=== PATIENT | female | born 1940 | race Caucasian/White ===

== ENCOUNTER 2017-08-12 16:28 | Inpatient (IN) | payer MEDICARE, OTHER ==
[2017-08-12] MEDS: PANTOPRAZOLE 40 MG INJ IV (16:32)
[2017-08-12] MEDS: CEFEPIME 2GM/50 ML (PMX) 50 ML IVPB (16:38)
[2017-08-12] MEDS: SOD CHLORIDE 0.9% 1,000 ML IV (16:46)
[2017-08-12 16:57] LABS: ADD MAN DIFF? NO
[2017-08-12 17:00] LABS: WHITE BLOOD COUNT 8.9 10^3/ul (4.8-10.8)
[2017-08-12 17:00] LABS: BASOPHIL # 0.1 10^3/ul (0.0-0.1); BASOPHILS % 0.6 % (0.0-2.0); EOSINOPHILS # 0.1 10^3/ul (0.0-0.5); HEMATOCRIT 40.7 % (37.0-47.0); HEMOGLOBIN 13.4 g/dl (12.0-16.0); LYMPHOCYTES # 1.8 10^3/ul (0.8-2.9); LYMPHOCYTES % 20.1 % (15.0-51.0); MEAN CORPUSCULAR HEMOGLOBIN 31.2 pg (29.0-33.0); MEAN CORPUSCULAR HGB CONC 32.9 g/dl (32.0-37.0); MEAN CORPUSCULAR VOLUME 94.7 fl (82.0-101.0); MEAN PLATELET VOLUME 10.1 fl (7.4-10.4); MONOCYTE # 1.4 10^3/ul (0.3-0.9); MONOCYTES % 15.6 % (0.0-11.0); NEUTROPHIL # 5.5 10^3/ul (1.6-7.5); NEUTROPHILS % 61.6 % (39.0-77.0); PLATELET COUNT 181 10^3/UL (140-415); RED CELL DISTRIBUTION WIDTH 15.2 % (11.5-14.5)
[2017-08-12 17:19] LABS: LACTIC ACID 1.9 mmol/L (0.5-2.0)
[2017-08-12 17:19] LABS: ALANINE AMINOTRANSFERASE 35 IU/L (13-69); ALBUMIN 2.7 g/dl (3.3-4.9); ALKALINE PHOSPHATASE 88 IU/L (42-121); ANION GAP 8 (8-16); ASPARTATE AMINO TRANSFERASE 31 IU/L (15-46); BILIRUBIN,INDIRECT 0.9 mg/dl (0-1.1); BILIRUBIN,TOTAL 0.9 mg/dl (0.2-1.3); BLOOD UREA NITROGEN 16 mg/dl (7-20); CALCIUM 8.4 mg/dl (8.4-10.2); CARBON DIOXIDE 25 mmol/L (21-31); CHLORIDE 106 mmol/L (97-110); CREATININE 0.56 mg/dl (0.44-1.00); GLUCOSE 141 mg/dl (70-220); POTASSIUM 3.6 mmol/L (3.5-5.1); SODIUM 135 mmol/L (135-144); TOTAL PROTEIN 5.7 g/dl (6.1-8.1)
[2017-08-12 17:20] LABS: INR 1.26; PT RATIO 1.3
[2017-08-12 17:30] LABS: TROPONIN-I < 0.010 ng/ml (0.000-0.120)
[2017-08-12] MEDS: ACETAMINOPHEN 325 MG TAB PO (18:09)
[2017-08-12 18:16] LABS: ADD UMIC YES; UR ASCORBIC ACID NEGATIVE (NEGATIVE); UR BILIRUBIN (Dip) NEGATIVE (NEGATIVE); UR BLOOD (Dip) NEGATIVE (NEGATIVE); UR BUDDING YEAST MODERATE /HPF (NONE SEEN); UR CLARITY CLEAR (CLEAR); UR COLOR YELLOW (YELLOW); UR GLUCOSE (Dip) 3+ mg/dL (NEGATIVE); UR KETONES (Dip) NEGATIVE (NEGATIVE); UR LEUKOCYTE ESTERASE (Dip) TRACE Leu/ul (NEGATIVE); UR NITRITE (Dip) NEGATIVE (NEGATIVE); UR RBC 1 /HPF (0-5); UR SPECIFIC GRAVITY (Dip) 1.015 (1.003-1.030); UR SQUAMOUS EPITHELIAL CELL FEW /HPF (FEW); UR TOTAL PROTEIN (Dip) NEGATIVE (NEGATIVE); UR UROBILINOGEN (Dip) 2+ mg/dL (NEGATIVE); UR WBC 10 /HPF (0-5)
[2017-08-12] MEDS: VANCOMYCIN 1 GM (PMX) 250 ML IVPB (18:51)
[2017-08-12] MEDS ORDERED: HYDROCODONE/APAP (5/325) TAB PO (19:00)
[2017-08-12] MEDS ORDERED: GLUCAGON 1 MG INJ IM (19:00)
[2017-08-12] MEDS ORDERED: ACETAMINOPHEN 325 MG TAB PO (19:00)
[2017-08-12] MEDS ORDERED: DEXTROSE 50% 50 ML SYRINGE IV ×2 (19:00)
[2017-08-12] MEDS ORDERED: GLUCOSE GEL 15 GRAM TUBE PO (19:00)
[2017-08-12] MEDS ORDERED: GLUCOSE GEL 15 GRAM TUBE BUCCAL (19:00)
[2017-08-12] MEDS ORDERED: ONDANSETRON 4 MG INJ IV ×2 (19:00)
[2017-08-12 19:30] LABS: LACTIC ACID 1.3 mmol/L (0.5-2.0)
[2017-08-12] MEDS: INSULIN GLARGINE [LANtus] 3 ML PEN SC (20:00)
[2017-08-12] MEDS: INSULIN ASPART [NOVOLOG] 3 ML PEN SC (21:00)
[2017-08-12 21:36] LABS: LACTIC ACID 1.1 mmol/L (0.5-2.0)
[2017-08-13] MEDS: ALBUTEROL/IPRATROPIUM (NEB) 3 ML AMP HHN (02:15)
[2017-08-13] MEDS: ACCU-CHEK XX (02:38)
[2017-08-13] MEDS: PANTOPRAZOLE (EC) 40 MG TAB PO (06:51)
[2017-08-13] MEDS: INSULIN ASPART [NOVOLOG] 3 ML PEN SC ×8 (08:15→21:26)
[2017-08-13] MEDS ORDERED: HYDROCORTISONE 25 MG SUPP PR (13:00)
[2017-08-13] MEDS ORDERED: BISACODYL 10 MG SUPP PR (13:00)
[2017-08-13] MEDS: FUROSEMIDE 40 MG INJ IV ×2 (13:47→21:16)
[2017-08-13] MEDS: CEFTRIAXONE 1 GM/50 ML (PMX) 50 ML IVPB (13:47)
[2017-08-13] MEDS: SENNA/DOCUSATE NA (8.6MG/50MG) TAB PO (13:48)
[2017-08-13] MEDS: BISACODYL (EC) 5 MG TAB PO (13:48)
[2017-08-13] MEDS: ALLOPURINOL 100 MG TAB PO ×2 (13:49→21:16)
[2017-08-13] MEDS: TICAGRELOR 90 MG TABLET PO (20:22)
[2017-08-13] MEDS: MAGNESIUM HYDROXIDE 30ML CUP PO (21:00)
[2017-08-13] MEDS: ATORVASTATIN 20 MG TAB PO (21:16)
[2017-08-13] MEDS: INSULIN GLARGINE [LANtus] 3 ML PEN SC (22:40)
[2017-08-13] MEDS ORDERED: LEVALBUTEROL (NEB) 0.63 MG/3 ML AMP (22:48)
[2017-08-13] MEDS: LEVALBUTEROL (NEB) 0.31 MG/3 ML AMP HHN (23:06)
[2017-08-13 23:15] LABS: OCCULT BLOOD STOOL POSITIVE (NEGATIVE)
[2017-08-14] MEDS: ACCU-CHEK XX (02:00)
[2017-08-14] MEDS: SOD CHLORIDE 0.9% 1,000 ML IV ×2 (02:51→20:48)
[2017-08-14 04:13] LABS: HEMOGLOBIN A1C 7.6 % (0-5.9)
[2017-08-14 04:16] LABS: ABNORMAL IP MESSAGE 1; HEMATOCRIT 36.9 % (37.0-47.0); HEMOGLOBIN 12.5 g/dl (12.0-16.0); MEAN CORPUSCULAR HGB CONC 33.9 g/dl (32.0-37.0); MEAN CORPUSCULAR VOLUME 94.4 fl (82.0-101.0); MEAN PLATELET VOLUME 10.6 fl (7.4-10.4); PLATELET COUNT 160 10^3/UL (140-415); RED BLOOD COUNT 3.91 10^6/ul (4.20-5.40); RED CELL DISTRIBUTION WIDTH 15.3 % (11.5-14.5)
[2017-08-14 04:16] LABS: WHITE BLOOD COUNT 10.1 10^3/ul (4.8-10.8)
[2017-08-14 04:21] LABS: POSITIVE DIFF @See below
[2017-08-14 04:22] LABS: ADD MAN DIFF? YES
[2017-08-14 04:23] LABS: PARTIAL THROMBOPLASTIN TIME 30.9 Sec (25.0-35.0)
[2017-08-14 04:24] LABS: LACTIC ACID 1.9 mmol/L (0.5-2.0)
[2017-08-14 04:29] LABS: ALANINE AMINOTRANSFERASE 32 IU/L (13-69); ALBUMIN 2.5 g/dl (3.3-4.9); ALBUMIN/GLOBULIN RATIO 0.92; ALKALINE PHOSPHATASE 87 IU/L (42-121); ANION GAP 10 (8-16); ASPARTATE AMINO TRANSFERASE 28 IU/L (15-46); BILIRUBIN,INDIRECT 0.7 mg/dl (0-1.1); BILIRUBIN,TOTAL 0.7 mg/dl (0.2-1.3); BLOOD UREA NITROGEN 16 mg/dl (7-20); CALCIUM 7.9 mg/dl (8.4-10.2); CARBON DIOXIDE 25 mmol/L (21-31); CHLORIDE 105 mmol/L (97-110); CREATININE 0.68 mg/dl (0.44-1.00); GLUCOSE 260 mg/dl (70-220); MAGNESIUM 1.6 mg/dl (1.7-2.5); PHOSPHORUS 1.9 mg/dl (2.5-4.9); POTASSIUM 3.3 mmol/L (3.5-5.1); SODIUM 137 mmol/L (135-144); TOTAL PROTEIN 5.2 g/dl (6.1-8.1)
[2017-08-14 04:38] LABS: TROPONIN-I 0.013 ng/ml (0.000-0.120)
[2017-08-14 04:57] LABS: THYROID STIMULATING HORMONE 0.065 MIU/L (0.465-4.680)
[2017-08-14 05:03] LABS: PT RATIO 1.4
[2017-08-14 05:31] LABS: ANISOCYTOSIS 1+ (0-0); BAND NEUTROPHILS #M 2.1 10^3/ul (0.0-0.6); BAND NEUTROPHILS % (M) 21 % (0-4); BASOPHIL #M 0.1 10^3/ul (0.0-0.0); BASOPHILS % (M) 1 % (0-2); GIANT THROMBO% (M) 2 % (0-0); LYMPHOCYTES #M 1.4 10^3/ul (0.8-2.9); LYMPHOCYTES % (M) 14 % (15-51); METAMYELOCYTES #M 0.6 10^3/ul (0.0-0.0); METAMYELOCYTES %M 6 % (0-0); MONOCYTE #M 1.3 10^3/ul (0.3-0.9); MONOCYTES % (M) 13 % (0-11); MYELOCYTES #M 0.1 10^3/ul (0.0-0.0); MYELOCYTES % (M) 1 % (0-0); OVALOCYTES 1+ (0-0); PLATELET ESTIMATE NORMAL; POIKILOCYTOSIS 1+ (0-0); POLYCHROMASIA 1+ (0-0); REACTIVE LYMPHOCYTES #M 0.1 10^3/ul (0.0-0.0); REACTIVE LYMPHOCYTES% (M) 1 % (0-0); SEG NEUT #M 4.5 10^3/ul (1.6-7.5); SEGMENTED NEUTROPHILS (M) % 42 % (39-77); SMUDGE%M 3 % (0-0)
[2017-08-14] MEDS: PANTOPRAZOLE (EC) 40 MG TAB PO (06:05)
[2017-08-14 06:23] LABS: INR 1.42; PROTIME 17.7 Sec (11.9-14.9)
[2017-08-14] MEDS: INSULIN ASPART [NOVOLOG] 3 ML PEN SC ×7 (08:04→20:55)
[2017-08-14] MEDS: ENOXAPARIN 40 MG/0.4 ML SYG SC (09:00)
[2017-08-14] MEDS: SENNA/DOCUSATE NA (8.6MG/50MG) TAB PO (09:10)
[2017-08-14] MEDS: METHIMAZOLE 5 MG TAB PO (09:10)
[2017-08-14] MEDS: ALLOPURINOL 100 MG TAB PO ×2 (09:10→20:49)
[2017-08-14] MEDS: BISACODYL (EC) 5 MG TAB PO (09:11)
[2017-08-14] MEDS: FUROSEMIDE 40 MG INJ IV ×3 (09:14→20:57)
[2017-08-14] MEDS: POTASSIUM PHOSPHATE 40 MEQ in SOD CHLORIDE 0.9% 250 ML IVPB (10:27)
[2017-08-14 13:57] LABS: FREE T4 (FREE THYROXINE) 2.19 ng/dl (0.85-1.93)
[2017-08-14 13:58] LABS: FREE T3 5.66 pg/ml (2.77-5.27)
[2017-08-14] MEDS: CEFTRIAXONE 1 GM/50 ML (PMX) 50 ML IVPB (15:11)
[2017-08-14] MEDS: MAGNESIUM SULFATE 2 GM/50 ML 50 ML IVPB (16:15)
[2017-08-14] MEDS: POTASSIUM CHLORIDE (SR) 20 MEQ TAB PO (16:15)
[2017-08-14] MEDS: MAGNESIUM SULFATE 3 GM in DEXTROSE 5% 100 ML IVPB (16:22)
[2017-08-14] MEDS: ATORVASTATIN 20 MG TAB PO (20:49)
[2017-08-14] MEDS: MAGNESIUM HYDROXIDE 30ML CUP PO (20:49)
[2017-08-14] MEDS: INSULIN GLARGINE [LANTus] (100 UNITS/ML) SYG SC (21:03)
[2017-08-15] MEDS: ACCU-CHEK XX (01:47)
[2017-08-15] MEDS: PANTOPRAZOLE (EC) 40 MG TAB PO (05:53)
[2017-08-15 06:21] LABS: ADD MAN DIFF? NO
[2017-08-15 06:33] LABS: WHITE BLOOD COUNT 6.4 10^3/ul (4.8-10.8)
[2017-08-15 06:34] LABS: BASOPHIL # 0.1 10^3/ul (0.0-0.1); BASOPHILS % 1.4 % (0.0-2.0); EOSINOPHILS # 0.1 10^3/ul (0.0-0.5); EOSINOPHILS % 1.4 % (0.0-7.0); HEMATOCRIT 35.5 % (37.0-47.0); HEMOGLOBIN 11.8 g/dl (12.0-16.0); LYMPHOCYTES # 1.4 10^3/ul (0.8-2.9); LYMPHOCYTES % 21.7 % (15.0-51.0); MEAN CORPUSCULAR HEMOGLOBIN 31.4 pg (29.0-33.0); MEAN CORPUSCULAR HGB CONC 33.2 g/dl (32.0-37.0); MEAN CORPUSCULAR VOLUME 94.4 fl (82.0-101.0); MEAN PLATELET VOLUME 10.3 fl (7.4-10.4); MONOCYTE # 0.9 10^3/ul (0.3-0.9); MONOCYTES % 13.2 % (0.0-11.0); NEUTROPHILS % 61.5 % (39.0-77.0); PLATELET COUNT 148 10^3/UL (140-415); RED BLOOD COUNT 3.76 10^6/ul (4.20-5.40); RED CELL DISTRIBUTION WIDTH 15.1 % (11.5-14.5)
[2017-08-15 06:50] LABS: POSITIVE DIFF @See below
[2017-08-15 07:00] LABS: ANION GAP 7 (8-16); BLOOD UREA NITROGEN 15 mg/dl (7-20); CALCIUM 7.5 mg/dl (8.4-10.2); CARBON DIOXIDE 27 mmol/L (21-31); CHLORIDE 106 mmol/L (97-110); CREATININE 0.54 mg/dl (0.44-1.00); GLUCOSE 190 mg/dl (70-220); POTASSIUM 3.1 mmol/L (3.5-5.1); SODIUM 137 mmol/L (135-144)
[2017-08-15] MEDS: INSULIN ASPART [NOVOLOG] 3 ML PEN SC ×7 (08:20→21:00)
[2017-08-15] MEDS ORDERED: POTASSIUM CHLORIDE 100 ML IVPB (08:30)
[2017-08-15] MEDS: BISACODYL (EC) 5 MG TAB PO ×2 (09:33→15:13)
[2017-08-15] MEDS: SENNA/DOCUSATE NA (8.6MG/50MG) TAB PO (09:34)
[2017-08-15] MEDS: ALLOPURINOL 100 MG TAB PO ×2 (09:34→21:08)
[2017-08-15] MEDS: METHIMAZOLE 5 MG TAB PO (09:34)
[2017-08-15] MEDS: ENOXAPARIN 40 MG/0.4 ML SYG SC ×2 (09:53)
[2017-08-15] MEDS: POTASSIUM CHLORIDE 20 MEQ POWDER FOR ORAL SOLN PO (11:48)
[2017-08-15] MEDS: CEFTRIAXONE 1 GM/50 ML (PMX) 50 ML IVPB (12:25)
[2017-08-15] MEDS ORDERED: FUROSEMIDE 40 MG INJ IV (15:00)
[2017-08-15] MEDS: FUROSEMIDE 40 MG INJ IV (15:13)
[2017-08-15] MEDS: ALBUTEROL/IPRATROPIUM (NEB) 3 ML AMP HHN (16:11)
[2017-08-15] MEDS: MAGNESIUM CITRATE 300 ML BTL PO (17:53)
[2017-08-15] MEDS: POLYETHYLENE GLYCOL 3350 119 GM POWDER PO (17:58)
[2017-08-15] MEDS: MAGNESIUM HYDROXIDE 30ML CUP PO (21:08)
[2017-08-15] MEDS: LACTOBACILLUS RHAMNOSUS CAP PO (21:08)
[2017-08-15] MEDS: ATORVASTATIN 20 MG TAB PO (21:08)
[2017-08-15] MEDS: INSULIN GLARGINE [LANTus] (100 UNITS/ML) SYG SC (21:19)
[2017-08-16] MEDS: SOD CHLORIDE 0.9% 500 ML IV ×2 (01:17→03:31)
[2017-08-16] MEDS: ACETAMINOPHEN 325 MG TAB PO ×2 (01:17→03:30)
[2017-08-16] MEDS: ACCU-CHEK XX (01:35)
[2017-08-16] MEDS: INSULIN GLARGINE [LANTus] (100 UNITS/ML) SYG SC ×2 (01:40→21:38)
[2017-08-16 02:32] LABS: LACTIC ACID 4.7 mmol/L (0.5-2.0)
[2017-08-16] MEDS ORDERED: SOD CHLORIDE 0.9% 1,000 ML IV (03:00)
[2017-08-16] MEDS ORDERED: VANCOMYCIN IV PER PHARMACY XX (03:00)
[2017-08-16] MEDS: PIPER-TAZO 2.25 GM (PMX) 50 ML IVPB ×3 (03:30→12:07)
[2017-08-16 04:07] LABS: ADD MAN DIFF? NO
[2017-08-16 04:15] LABS: ABNORMAL IP MESSAGE 1; BASOPHIL # 0.1 10^3/ul (0.0-0.1); BASOPHILS % 1.1 % (0.0-2.0); HEMATOCRIT 35.7 % (37.0-47.0); HEMOGLOBIN 11.8 g/dl (12.0-16.0); LYMPHOCYTES # 0.4 10^3/ul (0.8-2.9); MEAN CORPUSCULAR HEMOGLOBIN 31.1 pg (29.0-33.0); MEAN CORPUSCULAR HGB CONC 33.1 g/dl (32.0-37.0); MEAN CORPUSCULAR VOLUME 93.9 fl (82.0-101.0); MEAN PLATELET VOLUME 10.8 fl (7.4-10.4); MONOCYTE # 0.4 10^3/ul (0.3-0.9); NEUTROPHILS % 86.5 % (39.0-77.0); PLATELET COUNT 163 10^3/UL (140-415); RED CELL DISTRIBUTION WIDTH 15.1 % (11.5-14.5)
[2017-08-16 04:19] LABS: POSITIVE DIFF @See below
[2017-08-16] MEDS: VANCOMYCIN 1.5 GM in SOD CHLORIDE 0.9% 250 ML IVPB (04:27)
[2017-08-16] MEDS: PANTOPRAZOLE (EC) 40 MG TAB PO (06:31)
[2017-08-16] MEDS: POLYETHYLENE GLYCOL 3350 119 GM POWDER PO (06:32)
[2017-08-16 07:01] LABS: ABNORMAL IP MESSAGE 1; HEMATOCRIT 33.7 % (37.0-47.0); HEMOGLOBIN 11.4 g/dl (12.0-16.0); MEAN CORPUSCULAR HEMOGLOBIN 31.9 pg (29.0-33.0); MEAN CORPUSCULAR HGB CONC 33.8 g/dl (32.0-37.0); MEAN CORPUSCULAR VOLUME 94.4 fl (82.0-101.0); MEAN PLATELET VOLUME 10.7 fl (7.4-10.4); PLATELET COUNT 174 10^3/UL (140-415); RED BLOOD COUNT 3.57 10^6/ul (4.20-5.40); RED CELL DISTRIBUTION WIDTH 15.1 % (11.5-14.5)
[2017-08-16 07:01] LABS: WHITE BLOOD COUNT 9.7 10^3/ul (4.8-10.8)
[2017-08-16 07:04] LABS: ADD MAN DIFF? YES; POSITIVE DIFF @See below
[2017-08-16 07:24] LABS: CALCIUM 7.7 mg/dl (8.4-10.2); CARBON DIOXIDE 30 mmol/L (21-31); CREATININE 0.71 mg/dl (0.44-1.00); GLUCOSE 144 mg/dl (70-220); POTASSIUM 3.8 mmol/L (3.5-5.1)
[2017-08-16 07:51] LABS: LACTIC ACID 2.4 mmol/L (0.5-2.0)
[2017-08-16] MEDS: BISACODYL (EC) 5 MG TAB PO ×2 (07:54)
[2017-08-16] MEDS: LACTOBACILLUS RHAMNOSUS CAP PO ×2 (07:55→21:29)
[2017-08-16] MEDS: METHIMAZOLE 5 MG TAB PO (07:55)
[2017-08-16] MEDS: SENNA/DOCUSATE NA (8.6MG/50MG) TAB PO (07:55)
[2017-08-16] MEDS: ALLOPURINOL 100 MG TAB PO ×2 (07:55→21:29)
[2017-08-16] MEDS: INSULIN ASPART [NOVOLOG] 3 ML PEN SC ×7 (07:55→21:00)
[2017-08-16 07:57] LABS: SODIUM 141 mmol/L (135-144)
[2017-08-16 08:14] LABS: ANION GAP 7 (8-16); BLOOD UREA NITROGEN 22 mg/dl (7-20); CHLORIDE 108 mmol/L (97-110)
[2017-08-16 09:28] LABS: BAND NEUTROPHILS #M 4.2 10^3/ul (0.0-0.6); BAND NEUTROPHILS % (M) 44 % (0-4); EOSINOPHILS % (M) 2 % (0-7); GIANT THROMBO% (M) 1 % (0-0); LYMPHOCYTES #M 0.5 10^3/ul (0.8-2.9); LYMPHOCYTES % (M) 6 % (15-51); MONOCYTE #M 0.4 10^3/ul (0.3-0.9); MONOCYTES % (M) 5 % (0-11); OVALOCYTES 1+ (0-0); PLATELET ESTIMATE NORMAL; POIKILOCYTOSIS 1+ (0-0); REACTIVE LYMPHOCYTES #M 0.1 10^3/ul (0.0-0.0); REACTIVE LYMPHOCYTES% (M) 2 % (0-0); SEG NEUT #M 4.4 10^3/ul (1.6-7.5); SEGMENTED NEUTROPHILS (M) % 41 % (39-77); SMUDGE%M 9 % (0-0); SPHEROCYTES 1+ (0-0)
[2017-08-16 11:51] LABS: HEMATOCRIT 35.2 % (37.0-47.0); HEMOGLOBIN 11.4 g/dl (12.0-16.0)
[2017-08-16] MEDS: CEFTRIAXONE 1 GM/50 ML (PMX) 50 ML IVPB (12:38)
[2017-08-16 19:39] LABS: HEMATOCRIT 33.2 % (37.0-47.0); HEMOGLOBIN 10.9 g/dl (12.0-16.0)
[2017-08-16] MEDS: ATORVASTATIN 20 MG TAB PO (21:29)
[2017-08-16] MEDS: BALSAM PERU/CASTOR OIL 60 GM TUBE TOP (21:29)
[2017-08-17] MEDS: ACCU-CHEK XX (02:00)
[2017-08-17] MEDS ORDERED: VANCOMYCIN 1 GM 250 ML IVPB (04:00)
[2017-08-17] MEDS: PANTOPRAZOLE (EC) 40 MG TAB PO (05:58)
[2017-08-17 07:19] LABS: ADD MAN DIFF? NO
[2017-08-17 07:30] LABS: WHITE BLOOD COUNT 3.5 10^3/ul (4.8-10.8)
[2017-08-17 07:30] LABS: ABNORMAL IP MESSAGE 1; BASOPHILS % 0.9 % (0.0-2.0); EOSINOPHILS # 0.1 10^3/ul (0.0-0.5); EOSINOPHILS % 2.6 % (0.0-7.0); HEMOGLOBIN 10.3 g/dl (12.0-16.0); LYMPHOCYTES # 0.8 10^3/ul (0.8-2.9); LYMPHOCYTES % 22.3 % (15.0-51.0); MEAN CORPUSCULAR HEMOGLOBIN 30.6 pg (29.0-33.0); MEAN CORPUSCULAR HGB CONC 32.2 g/dl (32.0-37.0); MEAN PLATELET VOLUME 10.8 fl (7.4-10.4); MONOCYTE # 0.6 10^3/ul (0.3-0.9); MONOCYTES % 18.2 % (0.0-11.0); NEUTROPHIL # 1.9 10^3/ul (1.6-7.5); NEUTROPHILS % 54.8 % (39.0-77.0); PLATELET COUNT 187 10^3/UL (140-415); RED BLOOD COUNT 3.37 10^6/ul (4.20-5.40); RED CELL DISTRIBUTION WIDTH 15.3 % (11.5-14.5)
[2017-08-17] MEDS: INSULIN ASPART [NOVOLOG] 3 ML PEN SC ×7 (07:55→21:00)
[2017-08-17 07:59] LABS: ANION GAP 10 (8-16); BLOOD UREA NITROGEN 24 mg/dl (7-20); CALCIUM 7.6 mg/dl (8.4-10.2); CARBON DIOXIDE 28 mmol/L (21-31); CHLORIDE 107 mmol/L (97-110); CREATININE 0.66 mg/dl (0.44-1.00); GLUCOSE 147 mg/dl (70-220); POTASSIUM 3.5 mmol/L (3.5-5.1); SODIUM 141 mmol/L (135-144)
[2017-08-17] MEDS: SENNA/DOCUSATE NA (8.6MG/50MG) TAB PO (08:35)
[2017-08-17] MEDS: ALLOPURINOL 100 MG TAB PO ×2 (08:35→20:56)
[2017-08-17] MEDS: METHIMAZOLE 5 MG TAB PO (08:35)
[2017-08-17] MEDS: BALSAM PERU/CASTOR OIL 60 GM TUBE TOP ×2 (08:35→20:56)
[2017-08-17] MEDS: LACTOBACILLUS RHAMNOSUS CAP PO ×2 (08:35→20:59)
[2017-08-17] MEDS: FLUCONAZOLE 200 MG TAB PO (08:35)
[2017-08-17 12:32] LABS: HEMATOCRIT 29.2 % (37.0-47.0); HEMOGLOBIN 9.5 g/dl (12.0-16.0)
[2017-08-17 16:19] LABS: LACTIC ACID 1.9 mmol/L (0.5-2.0)
[2017-08-17] MEDS: ATORVASTATIN 20 MG TAB PO (20:55)
[2017-08-17] MEDS: INSULIN GLARGINE [LANTus] (100 UNITS/ML) SYG SC (21:08)
[2017-08-18] MEDS: ACCU-CHEK XX (02:00)
[2017-08-18] MEDS: PANTOPRAZOLE (EC) 40 MG TAB PO (06:38)
[2017-08-18 06:52] LABS: ADD MAN DIFF? NO
[2017-08-18 06:57] LABS: WHITE BLOOD COUNT 5.5 10^3/ul (4.8-10.8)
[2017-08-18 06:57] LABS: BASOPHILS % 0.7 % (0.0-2.0); EOSINOPHILS # 0.1 10^3/ul (0.0-0.5); EOSINOPHILS % 1.1 % (0.0-7.0); HEMATOCRIT 28.6 % (37.0-47.0); HEMOGLOBIN 9.1 g/dl (12.0-16.0); LYMPHOCYTES # 1.9 10^3/ul (0.8-2.9); LYMPHOCYTES % 34.5 % (15.0-51.0); MEAN CORPUSCULAR HEMOGLOBIN 30.4 pg (29.0-33.0); MEAN CORPUSCULAR HGB CONC 31.8 g/dl (32.0-37.0); MEAN CORPUSCULAR VOLUME 95.7 fl (82.0-101.0); MEAN PLATELET VOLUME 10.6 fl (7.4-10.4); MONOCYTE # 0.9 10^3/ul (0.3-0.9); MONOCYTES % 15.5 % (0.0-11.0); NEUTROPHIL # 2.6 10^3/ul (1.6-7.5); NEUTROPHILS % 46.6 % (39.0-77.0); PLATELET COUNT 196 10^3/UL (140-415); RED BLOOD COUNT 2.99 10^6/ul (4.20-5.40); RED CELL DISTRIBUTION WIDTH 15.3 % (11.5-14.5)
[2017-08-18 07:28] LABS: ANION GAP 5 (8-16); BLOOD UREA NITROGEN 14 mg/dl (7-20); CALCIUM 7.5 mg/dl (8.4-10.2); CARBON DIOXIDE 30 mmol/L (21-31); CHLORIDE 108 mmol/L (97-110); CREATININE 0.52 mg/dl (0.44-1.00); POTASSIUM 3.4 mmol/L (3.5-5.1); SODIUM 140 mmol/L (135-144)
[2017-08-18 07:32] LABS: GLUCOSE 49 mg/dl (70-220)
[2017-08-18] MEDS: INSULIN ASPART [NOVOLOG] 3 ML PEN SC ×7 (07:48→20:28)
[2017-08-18] MEDS: GLUCOSE GEL 15 GRAM TUBE PO (07:55)
[2017-08-18] MEDS: FLUCONAZOLE 200 MG TAB PO (08:02)
[2017-08-18] MEDS: LACTOBACILLUS RHAMNOSUS CAP PO ×2 (08:02→20:22)
[2017-08-18] MEDS: SENNA/DOCUSATE NA (8.6MG/50MG) TAB PO (08:02)
[2017-08-18] MEDS: BALSAM PERU/CASTOR OIL 60 GM TUBE TOP ×2 (08:02→21:56)
[2017-08-18] MEDS: ALLOPURINOL 100 MG TAB PO ×2 (08:02→20:22)
[2017-08-18] MEDS: METHIMAZOLE 5 MG TAB PO (08:02)
[2017-08-18] MEDS: FENTAnyl 50 MCG/ML VIAL (08:24)
[2017-08-18] MEDS: ETOMIDATE 20 MG INJ (08:24)
[2017-08-18] MEDS: PROPOFOL 0 ML (08:24)
[2017-08-18] MEDS: metroNIDAZOLE 500 MG TAB PO ×2 (15:22→21:56)
[2017-08-18] MEDS: CIPROFLOXACIN 500 MG TAB PO (17:40)
[2017-08-18] MEDS: POTASSIUM CHLORIDE (SR) 20 MEQ TAB PO (17:41)
[2017-08-18] MEDS: POTASSIUM CHLORIDE 100 ML IVPB (18:23)
[2017-08-18] MEDS: ATORVASTATIN 20 MG TAB PO (20:22)
[2017-08-18] MEDS: INSULIN GLARGINE [LANTus] (100 UNITS/ML) SYG SC (20:24)
[2017-08-19] MEDS: ACCU-CHEK XX (02:59)
[2017-08-19] MEDS: PANTOPRAZOLE (EC) 40 MG TAB PO (05:25)
[2017-08-19] MEDS: metroNIDAZOLE 500 MG TAB PO ×3 (05:25→21:38)
[2017-08-19] MEDS: CIPROFLOXACIN 500 MG TAB PO ×2 (05:25→18:00)
[2017-08-19 06:44] LABS: HEMATOCRIT 31.6 % (37.0-47.0); HEMOGLOBIN 10.1 g/dl (12.0-16.0); MEAN CORPUSCULAR VOLUME 96.9 fl (82.0-101.0); MEAN PLATELET VOLUME 10.6 fl (7.4-10.4); PLATELET COUNT 222 10^3/UL (140-415); RED BLOOD COUNT 3.26 10^6/ul (4.20-5.40); RED CELL DISTRIBUTION WIDTH 15.3 % (11.5-14.5)
[2017-08-19 06:44] LABS: WHITE BLOOD COUNT 5.4 10^3/ul (4.8-10.8)
[2017-08-19 07:02] LABS: POSITIVE DIFF @See below
[2017-08-19 07:03] LABS: ADD MAN DIFF? YES
[2017-08-19 07:22] LABS: ANION GAP 9 (8-16); BLOOD UREA NITROGEN 10 mg/dl (7-20); CALCIUM 7.9 mg/dl (8.4-10.2); CARBON DIOXIDE 25 mmol/L (21-31); CHLORIDE 110 mmol/L (97-110); CREATININE 0.56 mg/dl (0.44-1.00); GLUCOSE 137 mg/dl (70-220); POTASSIUM 4.1 mmol/L (3.5-5.1); SODIUM 140 mmol/L (135-144)
[2017-08-19 07:32] LABS: MAGNESIUM 1.9 mg/dl (1.7-2.5)
[2017-08-19] MEDS: INSULIN ASPART [NOVOLOG] 3 ML PEN SC ×7 (07:55→21:00)
[2017-08-19] MEDS: IOHEXOL 350MG/ML 50 ML BTL (08:36)
[2017-08-19] MEDS: SOD CHLORIDE 0.9% 100 ML (08:36)
[2017-08-19] MEDS: IOHEXOL 100 ML (08:36)
[2017-08-19] MEDS: ALLOPURINOL 100 MG TAB PO (09:25)
[2017-08-19] MEDS: LACTOBACILLUS RHAMNOSUS CAP PO ×2 (09:25→21:38)
[2017-08-19] MEDS: METHIMAZOLE 5 MG TAB PO ×3 (09:25→21:38)
[2017-08-19] MEDS: SENNA/DOCUSATE NA (8.6MG/50MG) TAB PO (09:25)
[2017-08-19] MEDS: FLUCONAZOLE 200 MG TAB PO (09:25)
[2017-08-19] MEDS: FUROSEMIDE 20 MG INJ IV (09:26)
[2017-08-19] MEDS: BALSAM PERU/CASTOR OIL 60 GM TUBE TOP ×2 (09:35→21:38)
[2017-08-19 10:48] LABS: ANISOCYTOSIS 1+ (0-0); BAND NEUTROPHILS % (M) 1 % (0-4); BASOPHIL #M 0.1 10^3/ul (0.0-0.0); BASOPHILS % (M) 2 % (0-2); BURR CELLS 2+ (0-0); EOSINOPHILS % (M) 5 % (0-7); GIANT THROMBO% (M) 3 % (0-0); LYMPHOCYTES #M 1.5 10^3/ul (0.8-2.9); LYMPHOCYTES % (M) 29 % (15-51); METAMYELOCYTES %M 1 % (0-0); MONOCYTE #M 0.3 10^3/ul (0.3-0.9); MONOCYTES % (M) 6 % (0-11); OVALOCYTES 1+ (0-0); PLATELET ESTIMATE NORMAL; POIKILOCYTOSIS 2+ (0-0); POLYCHROMASIA 1+ (0-0); REACTIVE LYMPHOCYTES #M 0.1 10^3/ul (0.0-0.0); REACTIVE LYMPHOCYTES% (M) 3 % (0-0); SEG NEUT #M 2.9 10^3/ul (1.6-7.5); SEGMENTED NEUTROPHILS (M) % 53 % (39-77); SMUDGE%M 82 % (0-0); TOXIC GRANULATION 1+ (0-0)
[2017-08-19 12:17] LABS: IRON 27 ug/dl (35-150)
[2017-08-19 12:28] LABS: % IRON SATURATION 11 % SAT (22-52); TOTAL IRON BINDING CAPACITY 240 ug/dl (241-421)
[2017-08-19 12:30] LABS: FREE T4 (FREE THYROXINE) 2.07 ng/dl (0.85-1.93)
[2017-08-19 12:45] LABS: THYROID STIMULATING HORMONE 0.467 MIU/L (0.465-4.680)
[2017-08-19] MEDS: ATORVASTATIN 20 MG TAB PO (21:38)
[2017-08-19] MEDS: INSULIN GLARGINE [LANTus] (100 UNITS/ML) SYG SC (21:55)
[2017-08-20] MEDS: ACCU-CHEK XX (02:00)
[2017-08-20] MEDS: PANTOPRAZOLE (EC) 40 MG TAB PO (06:13)
[2017-08-20] MEDS: CIPROFLOXACIN 500 MG TAB PO ×2 (06:13→17:34)
[2017-08-20] MEDS: metroNIDAZOLE 500 MG TAB PO ×3 (06:13→21:46)
[2017-08-20] MEDS: INSULIN ASPART [NOVOLOG] 3 ML PEN SC ×7 (07:55→21:00)
[2017-08-20 07:57] LABS: PROTIME 16.4 Sec (11.9-14.9); PT RATIO 1.3
[2017-08-20] MEDS: ALLOPURINOL 300 MG TAB PO (08:07)
[2017-08-20] MEDS: BALSAM PERU/CASTOR OIL 60 GM TUBE TOP ×2 (08:07→21:58)
[2017-08-20] MEDS: FUROSEMIDE 20 MG INJ IV (08:11)
[2017-08-20] MEDS: FLUCONAZOLE 200 MG TAB PO (08:12)
[2017-08-20] MEDS: LACTOBACILLUS RHAMNOSUS CAP PO ×2 (08:12→20:54)
[2017-08-20] MEDS: SENNA/DOCUSATE NA (8.6MG/50MG) TAB PO (08:12)
[2017-08-20] MEDS: METHIMAZOLE 5 MG TAB PO ×3 (08:12→20:54)
[2017-08-20] MEDS: PHYTONADIONE 10 MG in DEXTROSE 5% 50 ML IVPB (18:41)
[2017-08-20] MEDS: FERROUS FUMARATE (SR) TAB PO (20:53)
[2017-08-20] MEDS: ASCORBIC ACID 500 MG TAB PO (20:53)
[2017-08-20] MEDS: ATORVASTATIN 20 MG TAB PO (20:54)
[2017-08-20] MEDS: INSULIN GLARGINE [LANTus] (100 UNITS/ML) SYG SC (21:48)
[2017-08-21] MEDS: ACCU-CHEK XX (02:00)
[2017-08-21] MEDS: CIPROFLOXACIN 500 MG TAB PO ×2 (05:57→17:33)
[2017-08-21] MEDS: metroNIDAZOLE 500 MG TAB PO ×3 (05:57→21:04)
[2017-08-21] MEDS: PANTOPRAZOLE (EC) 40 MG TAB PO (05:57)
[2017-08-21] MEDS: INSULIN ASPART [NOVOLOG] 3 ML PEN SC ×7 (08:29→20:07)
[2017-08-21] MEDS: FERROUS FUMARATE (SR) TAB PO ×2 (09:41→20:07)
[2017-08-21] MEDS: ALLOPURINOL 300 MG TAB PO (09:41)
[2017-08-21] MEDS: METHIMAZOLE 5 MG TAB PO ×3 (09:42→20:07)
[2017-08-21] MEDS: LACTOBACILLUS RHAMNOSUS CAP PO ×2 (09:42→20:06)
[2017-08-21] MEDS: FLUCONAZOLE 200 MG TAB PO (09:42)
[2017-08-21] MEDS: ASCORBIC ACID 500 MG TAB PO ×2 (09:42→20:06)
[2017-08-21] MEDS: SENNA/DOCUSATE NA (8.6MG/50MG) TAB PO (09:42)
[2017-08-21] MEDS: BALSAM PERU/CASTOR OIL 60 GM TUBE TOP ×2 (09:43→20:08)
[2017-08-21] MEDS: FUROSEMIDE 20 MG INJ IV (09:43)
[2017-08-21] MEDS: ATORVASTATIN 20 MG TAB PO (20:06)
[2017-08-21] MEDS: INSULIN GLARGINE [LANTus] (100 UNITS/ML) SYG SC (20:15)
[2017-08-22] MEDS: ACCU-CHEK XX (02:00)
[2017-08-22 06:40] LABS: WHITE BLOOD COUNT 7.7 10^3/ul (4.8-10.8)
[2017-08-22 06:40] LABS: HEMATOCRIT 30.7 % (37.0-47.0); HEMOGLOBIN 9.6 g/dl (12.0-16.0); MEAN CORPUSCULAR HEMOGLOBIN 30.2 pg (29.0-33.0); MEAN CORPUSCULAR HGB CONC 31.3 g/dl (32.0-37.0); MEAN CORPUSCULAR VOLUME 96.5 fl (82.0-101.0); MEAN PLATELET VOLUME 10.3 fl (7.4-10.4); PLATELET COUNT 296 10^3/UL (140-415); RED BLOOD COUNT 3.18 10^6/ul (4.20-5.40); RED CELL DISTRIBUTION WIDTH 15.9 % (11.5-14.5)
[2017-08-22] MEDS: CIPROFLOXACIN 500 MG TAB PO ×2 (06:40→17:31)
[2017-08-22] MEDS: metroNIDAZOLE 500 MG TAB PO ×2 (06:41→13:50)
[2017-08-22] MEDS: ALLOPURINOL 300 MG TAB PO (06:41)
[2017-08-22] MEDS: PANTOPRAZOLE (EC) 40 MG TAB PO (06:43)
[2017-08-22 07:13] LABS: ANION GAP 11 (8-16); BLOOD UREA NITROGEN 12 mg/dl (7-20); CARBON DIOXIDE 24 mmol/L (21-31); CHLORIDE 107 mmol/L (97-110); CREATININE 0.62 mg/dl (0.44-1.00); GLUCOSE 120 mg/dl (70-220); POTASSIUM 3.3 mmol/L (3.5-5.1); SODIUM 139 mmol/L (135-144)
[2017-08-22] MEDS: INSULIN ASPART [NOVOLOG] 3 ML PEN SC ×7 (07:34→20:21)
[2017-08-22 07:39] LABS: POSITIVE DIFF @See below
[2017-08-22 07:40] LABS: ADD MAN DIFF? YES
[2017-08-22] MEDS: FUROSEMIDE 20 MG INJ IV (08:00)
[2017-08-22] MEDS: METHIMAZOLE 5 MG TAB PO ×3 (08:01→20:21)
[2017-08-22] MEDS: FERROUS FUMARATE (SR) TAB PO ×2 (08:01→20:21)
[2017-08-22] MEDS: ASCORBIC ACID 500 MG TAB PO ×2 (08:01→20:21)
[2017-08-22] MEDS: LACTOBACILLUS RHAMNOSUS CAP PO ×2 (08:01→20:21)
[2017-08-22] MEDS: SENNA/DOCUSATE NA (8.6MG/50MG) TAB PO (08:01)
[2017-08-22] MEDS: FLUCONAZOLE 200 MG TAB PO (08:01)
[2017-08-22] MEDS: BALSAM PERU/CASTOR OIL 60 GM TUBE TOP ×2 (08:02→20:22)
[2017-08-22 10:46] LABS: BAND NEUTROPHILS #M 0.3 10^3/ul (0.0-0.6); BAND NEUTROPHILS % (M) 5 % (0-4); GIANT THROMBO% (M) 3 % (0-0); HYPOCHROMASIA 1+ (0-0); LYMPHOCYTES #M 0.8 10^3/ul (0.8-2.9); LYMPHOCYTES % (M) 11 % (15-51); METAMYELOCYTES %M 1 % (0-0); MONOCYTE #M 0.7 10^3/ul (0.3-0.9); MONOCYTES % (M) 10 % (0-11); PLATELET ESTIMATE NORMAL; POIKILOCYTOSIS 1+ (0-0); PROMYELOCYTES % (M) 1 % (0-0); SEG NEUT #M 5.6 10^3/ul (1.6-7.5); SEGMENTED NEUTROPHILS (M) % 72 % (39-77); SMUDGE%M 18 % (0-0); TOXIC GRANULATION 1+ (0-0)
[2017-08-22] MEDS: POTASSIUM CHLORIDE (SR) 20 MEQ TAB PO (12:31)
[2017-08-22 16:33] LABS: HEPATITIS B SURFACE ANTIBODY POSITIVE (NEGATIVE)
[2017-08-22 17:13] LABS: HEPATITIS B SURFACE ANTIGEN NEGATIVE (NEGATIVE)
[2017-08-22 17:30] LABS: HEPATITIS C VIRAL ANTIBODY NEGATIVE (NEGATIVE)
[2017-08-22] MEDS: ATORVASTATIN 20 MG TAB PO (20:21)
[2017-08-22] MEDS: INSULIN GLARGINE [LANTus] (100 UNITS/ML) SYG SC (21:12)
[2017-08-23] MEDS: ACCU-CHEK XX (02:00)
[2017-08-23] MEDS: PANTOPRAZOLE (EC) 40 MG TAB PO (05:50)
[2017-08-23] MEDS: CIPROFLOXACIN 500 MG TAB PO ×2 (05:50→17:20)
[2017-08-23] MEDS: INSULIN ASPART [NOVOLOG] 3 ML PEN SC ×7 (07:55→22:03)
[2017-08-23] MEDS: ASCORBIC ACID 500 MG TAB PO ×2 (08:03→20:10)
[2017-08-23] MEDS: ALLOPURINOL 300 MG TAB PO (08:03)
[2017-08-23] MEDS: LACTOBACILLUS RHAMNOSUS CAP PO ×2 (08:03→20:10)
[2017-08-23] MEDS: METHIMAZOLE 5 MG TAB PO ×3 (08:04→20:10)
[2017-08-23] MEDS: FUROSEMIDE 20 MG INJ IV (08:04)
[2017-08-23] MEDS: SENNA/DOCUSATE NA (8.6MG/50MG) TAB PO (08:04)
[2017-08-23] MEDS: FERROUS FUMARATE (SR) TAB PO ×2 (08:04→20:11)
[2017-08-23 08:09] LABS: HEMATOCRIT 31.4 % (37.0-47.0); HEMOGLOBIN 9.8 g/dl (12.0-16.0); MEAN CORPUSCULAR HEMOGLOBIN 30.8 pg (29.0-33.0); MEAN CORPUSCULAR HGB CONC 31.2 g/dl (32.0-37.0); MEAN CORPUSCULAR VOLUME 98.7 fl (82.0-101.0); MEAN PLATELET VOLUME 9.9 fl (7.4-10.4); PLATELET COUNT 303 10^3/UL (140-415); RED BLOOD COUNT 3.18 10^6/ul (4.20-5.40); RED CELL DISTRIBUTION WIDTH 16.5 % (11.5-14.5)
[2017-08-23 08:13] LABS: ADD MAN DIFF? YES; POSITIVE DIFF @See below
[2017-08-23 08:30] LABS: ANION GAP 9 (8-16); BLOOD UREA NITROGEN 14 mg/dl (7-20); CARBON DIOXIDE 25 mmol/L (21-31); CHLORIDE 110 mmol/L (97-110); CREATININE 0.58 mg/dl (0.44-1.00); GLUCOSE 119 mg/dl (70-220); POTASSIUM 3.7 mmol/L (3.5-5.1); SODIUM 140 mmol/L (135-144)
[2017-08-23 08:31] LABS: CALCIUM 8.4 mg/dl (8.4-10.2)
[2017-08-23] MEDS: BALSAM PERU/CASTOR OIL 60 GM TUBE TOP ×2 (09:36→20:11)
[2017-08-23 09:42] LABS: BAND NEUTROPHILS #M 0.3 10^3/ul (0.0-0.6); BAND NEUTROPHILS % (M) 5 % (0-4); BASOPHILS % (M) 1 % (0-2); EOSINOPHILS % (M) 2 % (0-7); LYMPHOCYTES #M 0.7 10^3/ul (0.8-2.9); LYMPHOCYTES % (M) 11 % (15-51); METAMYELOCYTES %M 1 % (0-0); MONOCYTE #M 0.4 10^3/ul (0.3-0.9); MONOCYTES % (M) 7 % (0-11); MYELOCYTES % (M) 1 % (0-0); OVALOCYTES 1+ (0-0); PLATELET ESTIMATE NORMAL; POIKILOCYTOSIS 1+ (0-0); POLYCHROMASIA 2+ (0-0); SEG NEUT #M 5.1 10^3/ul (1.6-7.5); SEGMENTED NEUTROPHILS (M) % 72 % (39-77); SMUDGE%M 19 % (0-0)
[2017-08-23] MEDS: ATORVASTATIN 20 MG TAB PO (20:10)
[2017-08-23] MEDS: INSULIN GLARGINE [LANTus] (100 UNITS/ML) SYG SC (22:03)
[2017-08-24] MEDS: ACCU-CHEK XX (02:00)
[2017-08-24] MEDS: PANTOPRAZOLE (EC) 40 MG TAB PO (06:26)
[2017-08-24] MEDS: CIPROFLOXACIN 500 MG TAB PO ×2 (06:26→17:20)
[2017-08-24] MEDS: INSULIN ASPART [NOVOLOG] 3 ML PEN SC ×7 (07:55→20:13)
[2017-08-24] MEDS: ALLOPURINOL 300 MG TAB PO (07:59)
[2017-08-24] MEDS: SENNA/DOCUSATE NA (8.6MG/50MG) TAB PO (08:00)
[2017-08-24] MEDS: BALSAM PERU/CASTOR OIL 60 GM TUBE TOP ×2 (08:00→20:13)
[2017-08-24] MEDS: FERROUS FUMARATE (SR) TAB PO ×2 (08:00→20:09)
[2017-08-24] MEDS: METHIMAZOLE 5 MG TAB PO ×3 (08:00→20:09)
[2017-08-24] MEDS: ASCORBIC ACID 500 MG TAB PO ×2 (08:00→20:08)
[2017-08-24] MEDS: LACTOBACILLUS RHAMNOSUS CAP PO ×2 (08:09→20:09)
[2017-08-24] MEDS: FUROSEMIDE 20 MG INJ IV (08:09)
[2017-08-24 08:41] LABS: ADD MAN DIFF? NO
[2017-08-24 08:48] LABS: BASOPHIL # 0.1 10^3/ul (0.0-0.1); BASOPHILS % 0.9 % (0.0-2.0); EOSINOPHILS # 0.1 10^3/ul (0.0-0.5); EOSINOPHILS % 1.4 % (0.0-7.0); HEMATOCRIT 32.5 % (37.0-47.0); HEMOGLOBIN 10.2 g/dl (12.0-16.0); LYMPHOCYTES # 2.3 10^3/ul (0.8-2.9); LYMPHOCYTES % 27.8 % (15.0-51.0); MEAN CORPUSCULAR HEMOGLOBIN 31.1 pg (29.0-33.0); MEAN CORPUSCULAR HGB CONC 31.4 g/dl (32.0-37.0); MEAN CORPUSCULAR VOLUME 99.1 fl (82.0-101.0); MEAN PLATELET VOLUME 9.5 fl (7.4-10.4); MONOCYTE # 0.9 10^3/ul (0.3-0.9); MONOCYTES % 10.9 % (0.0-11.0); NEUTROPHIL # 4.7 10^3/ul (1.6-7.5); NEUTROPHILS % 57.4 % (39.0-77.0); PLATELET COUNT 356 10^3/UL (140-415); RED BLOOD COUNT 3.28 10^6/ul (4.20-5.40); RED CELL DISTRIBUTION WIDTH 17.1 % (11.5-14.5)
[2017-08-24 08:48] LABS: WHITE BLOOD COUNT 8.1 10^3/ul (4.8-10.8)
[2017-08-24 09:32] LABS: ANION GAP 10 (8-16); BLOOD UREA NITROGEN 13 mg/dl (7-20); CARBON DIOXIDE 25 mmol/L (21-31); CHLORIDE 108 mmol/L (97-110); GLUCOSE 149 mg/dl (70-220); POTASSIUM 3.5 mmol/L (3.5-5.1); SODIUM 139 mmol/L (135-144)
[2017-08-24 11:31] LABS: MITOCHONDRIAL TB NEGATIVE (NEGATIVE); SMOOTH MUSCLE AB SCREEN NEGATIVE (NEGATIVE)
[2017-08-24 13:52] LABS: ANA SCREEN NEGATIVE (NEGATIVE)
[2017-08-24] MEDS: ATORVASTATIN 20 MG TAB PO (20:09)
[2017-08-24] MEDS: INSULIN GLARGINE [LANTus] (100 UNITS/ML) SYG SC (21:14)
[2017-08-25] MEDS: ACCU-CHEK XX (01:31)
[2017-08-25] MEDS: CIPROFLOXACIN 500 MG TAB PO ×2 (05:14→17:17)
[2017-08-25] MEDS: PANTOPRAZOLE (EC) 40 MG TAB PO (05:15)
[2017-08-25] MEDS: ALLOPURINOL 300 MG TAB PO (06:56)
[2017-08-25] MEDS: INSULIN ASPART [NOVOLOG] 3 ML PEN SC ×7 (07:55→20:33)
[2017-08-25] MEDS: FERROUS FUMARATE (SR) TAB PO ×2 (08:53→20:35)
[2017-08-25] MEDS: ASCORBIC ACID 500 MG TAB PO ×2 (08:53→20:16)
[2017-08-25] MEDS: SENNA/DOCUSATE NA (8.6MG/50MG) TAB PO (08:53)
[2017-08-25] MEDS: METHIMAZOLE 5 MG TAB PO ×3 (08:53→20:16)
[2017-08-25] MEDS: LACTOBACILLUS RHAMNOSUS CAP PO ×2 (08:53→20:15)
[2017-08-25] MEDS: FUROSEMIDE 20 MG INJ IV (08:54)
[2017-08-25] MEDS: BALSAM PERU/CASTOR OIL 60 GM TUBE TOP ×2 (08:56→20:17)
[2017-08-25 09:02] LABS: ADD MAN DIFF? NO
[2017-08-25 09:07] LABS: BASOPHILS % 0.6 % (0.0-2.0); EOSINOPHILS # 0.1 10^3/ul (0.0-0.5); EOSINOPHILS % 1.3 % (0.0-7.0); HEMATOCRIT 30.3 % (37.0-47.0); HEMOGLOBIN 9.4 g/dl (12.0-16.0); LYMPHOCYTES # 1.9 10^3/ul (0.8-2.9); LYMPHOCYTES % 26.7 % (15.0-51.0); MEAN CORPUSCULAR HEMOGLOBIN 30.5 pg (29.0-33.0); MEAN CORPUSCULAR VOLUME 98.4 fl (82.0-101.0); MEAN PLATELET VOLUME 9.7 fl (7.4-10.4); MONOCYTE # 0.7 10^3/ul (0.3-0.9); MONOCYTES % 10.4 % (0.0-11.0); NEUTROPHIL # 4.2 10^3/ul (1.6-7.5); PLATELET COUNT 339 10^3/UL (140-415); RED BLOOD COUNT 3.08 10^6/ul (4.20-5.40); RED CELL DISTRIBUTION WIDTH 17.2 % (11.5-14.5)
[2017-08-25 09:35] LABS: ANION GAP 6 (8-16); BLOOD UREA NITROGEN 12 mg/dl (7-20); CALCIUM 7.9 mg/dl (8.4-10.2); CARBON DIOXIDE 27 mmol/L (21-31); CHLORIDE 106 mmol/L (97-110); CREATININE 0.82 mg/dl (0.44-1.00); GLUCOSE 111 mg/dl (70-220); POTASSIUM 3.5 mmol/L (3.5-5.1); SODIUM 135 mmol/L (135-144)
[2017-08-25] MEDS: ATORVASTATIN 20 MG TAB PO (20:16)
[2017-08-25] MEDS: INSULIN GLARGINE [LANTus] (100 UNITS/ML) SYG SC (20:34)
[2017-08-26] MEDS: ACCU-CHEK XX (02:00)
[2017-08-26] MEDS: PANTOPRAZOLE (EC) 40 MG TAB PO (05:27)
[2017-08-26] MEDS: CIPROFLOXACIN 500 MG TAB PO ×2 (05:27→17:54)
[2017-08-26 05:33] LABS: ADD MAN DIFF? NO
[2017-08-26 05:39] LABS: WHITE BLOOD COUNT 6.7 10^3/ul (4.8-10.8)
[2017-08-26 05:39] LABS: BASOPHILS % 0.6 % (0.0-2.0); EOSINOPHILS # 0.1 10^3/ul (0.0-0.5); EOSINOPHILS % 1.3 % (0.0-7.0); HEMOGLOBIN 9.1 g/dl (12.0-16.0); LYMPHOCYTES # 1.8 10^3/ul (0.8-2.9); LYMPHOCYTES % 26.3 % (15.0-51.0); MEAN CORPUSCULAR HEMOGLOBIN 30.7 pg (29.0-33.0); MEAN CORPUSCULAR HGB CONC 31.4 g/dl (32.0-37.0); MEAN PLATELET VOLUME 9.6 fl (7.4-10.4); MONOCYTE # 0.8 10^3/ul (0.3-0.9); MONOCYTES % 11.8 % (0.0-11.0); NEUTROPHIL # 3.9 10^3/ul (1.6-7.5); NEUTROPHILS % 58.8 % (39.0-77.0); PLATELET COUNT 333 10^3/UL (140-415); RED BLOOD COUNT 2.96 10^6/ul (4.20-5.40); RED CELL DISTRIBUTION WIDTH 17.2 % (11.5-14.5)
[2017-08-26 06:17] LABS: ANION GAP 6 (8-16); BLOOD UREA NITROGEN 13 mg/dl (7-20); CALCIUM 7.8 mg/dl (8.4-10.2); CARBON DIOXIDE 26 mmol/L (21-31); CHLORIDE 106 mmol/L (97-110); CREATININE 0.89 mg/dl (0.44-1.00); GLUCOSE 196 mg/dl (70-220); POTASSIUM 3.5 mmol/L (3.5-5.1); SODIUM 134 mmol/L (135-144)
[2017-08-26] MEDS: INSULIN ASPART [NOVOLOG] 3 ML PEN SC ×7 (08:41→21:31)
[2017-08-26] MEDS: FUROSEMIDE 20 MG INJ IV (08:42)
[2017-08-26] MEDS: FERROUS FUMARATE (SR) TAB PO ×2 (08:43→20:41)
[2017-08-26] MEDS: METHIMAZOLE 5 MG TAB PO ×3 (08:43→20:42)
[2017-08-26] MEDS: ASCORBIC ACID 500 MG TAB PO ×2 (08:43→20:41)
[2017-08-26] MEDS: SENNA/DOCUSATE NA (8.6MG/50MG) TAB PO (08:43)
[2017-08-26] MEDS: LACTOBACILLUS RHAMNOSUS CAP PO ×2 (08:43→20:42)
[2017-08-26] MEDS: ALLOPURINOL 300 MG TAB PO (08:45)
[2017-08-26] MEDS: BALSAM PERU/CASTOR OIL 60 GM TUBE TOP ×2 (09:00→20:42)
[2017-08-26] MEDS: ATORVASTATIN 20 MG TAB PO (20:42)
[2017-08-26] MEDS: INSULIN GLARGINE [LANTus] (100 UNITS/ML) SYG SC (21:32)
[2017-08-27] MEDS: ACCU-CHEK XX (02:47)
[2017-08-27] MEDS: CIPROFLOXACIN 500 MG TAB PO ×2 (05:34→17:48)
[2017-08-27] MEDS: PANTOPRAZOLE (EC) 40 MG TAB PO (05:34)
[2017-08-27] MEDS: INSULIN ASPART [NOVOLOG] 3 ML PEN SC ×7 (07:50→21:26)
[2017-08-27] MEDS: SENNA/DOCUSATE NA (8.6MG/50MG) TAB PO (08:37)
[2017-08-27] MEDS: FERROUS FUMARATE (SR) TAB PO ×2 (08:37→21:28)
[2017-08-27] MEDS: ALLOPURINOL 300 MG TAB PO (08:37)
[2017-08-27] MEDS: LACTOBACILLUS RHAMNOSUS CAP PO ×2 (08:37→21:26)
[2017-08-27] MEDS: ASCORBIC ACID 500 MG TAB PO ×2 (08:37→21:26)
[2017-08-27] MEDS: METHIMAZOLE 5 MG TAB PO ×3 (08:37→21:26)
[2017-08-27] MEDS: BALSAM PERU/CASTOR OIL 60 GM TUBE TOP ×2 (08:38→21:28)
[2017-08-27] MEDS: FUROSEMIDE 20 MG INJ IV (08:39)
[2017-08-27] MEDS: INSULIN GLARGINE [LANTus] (100 UNITS/ML) SYG SC (21:22)
[2017-08-27] MEDS: ATORVASTATIN 20 MG TAB PO (21:26)
[2017-08-28] MEDS: ACCU-CHEK XX (02:01)
[2017-08-28] MEDS: CIPROFLOXACIN 500 MG TAB PO ×2 (05:40→17:49)
[2017-08-28] MEDS: PANTOPRAZOLE (EC) 40 MG TAB PO (05:40)
[2017-08-28] MEDS: INSULIN ASPART [NOVOLOG] 3 ML PEN SC ×7 (07:50→21:16)
[2017-08-28] MEDS: ASCORBIC ACID 500 MG TAB PO ×2 (08:36→20:25)
[2017-08-28] MEDS: FERROUS FUMARATE (SR) TAB PO ×2 (08:36→20:24)
[2017-08-28] MEDS: BALSAM PERU/CASTOR OIL 60 GM TUBE TOP ×2 (08:37→21:16)
[2017-08-28] MEDS: ALLOPURINOL 300 MG TAB PO (08:37)
[2017-08-28] MEDS: SENNA/DOCUSATE NA (8.6MG/50MG) TAB PO (08:37)
[2017-08-28] MEDS: LACTOBACILLUS RHAMNOSUS CAP PO ×2 (08:37→20:24)
[2017-08-28] MEDS: METHIMAZOLE 5 MG TAB PO ×3 (08:37→20:25)
[2017-08-28] MEDS: FUROSEMIDE 20 MG INJ IV (08:38)
[2017-08-28] MEDS: LINAGLIPTIN 5 MG TABLET PO (13:37)
[2017-08-28] MEDS: metFORMIN (XR) 500 MG TAB PO (18:16)
[2017-08-28] MEDS: ATORVASTATIN 20 MG TAB PO (20:25)
[2017-08-28] MEDS: INSULIN GLARGINE [LANTus] (100 UNITS/ML) SYG SC (21:14)
[2017-08-29] MEDS: ACCU-CHEK XX (02:40)
[2017-08-29] MEDS: PANTOPRAZOLE (EC) 40 MG TAB PO (05:41)
[2017-08-29 05:56] LABS: FREE THYROXINE INDEX (Calc) 2.87 ug/ml (0.65-3.89); T3 UPTAKE 44.2 % (23.5-40.5); T4 (THYROXINE) 6.5 ug/dl (5.5-11.0)
[2017-08-29] MEDS: ASCORBIC ACID 500 MG TAB PO ×2 (08:53→21:28)
[2017-08-29] MEDS: FERROUS FUMARATE (SR) TAB PO ×2 (08:53→21:28)
[2017-08-29] MEDS: LACTOBACILLUS RHAMNOSUS CAP PO ×2 (08:53→21:29)
[2017-08-29] MEDS: LINAGLIPTIN 5 MG TABLET PO (08:53)
[2017-08-29] MEDS: SENNA/DOCUSATE NA (8.6MG/50MG) TAB PO (08:53)
[2017-08-29] MEDS: EMPAGLIFLOZIN 10 MG TABLET PO (08:53)
[2017-08-29] MEDS: ALLOPURINOL 300 MG TAB PO (08:54)
[2017-08-29] MEDS: METHIMAZOLE 5 MG TAB PO ×3 (08:54→21:28)
[2017-08-29] MEDS: metFORMIN (XR) 500 MG TAB PO ×2 (08:54→18:31)
[2017-08-29] MEDS: BALSAM PERU/CASTOR OIL 60 GM TUBE TOP ×2 (08:54→21:29)
[2017-08-29] MEDS: INSULIN ASPART [NOVOLOG] 3 ML PEN SC ×7 (08:56→21:00)
[2017-08-29] MEDS: FUROSEMIDE 20 MG TAB PO (08:59)
[2017-08-29] MEDS ORDERED: INSULIN ASPART [NOVOLOG] 3 ML PEN SC (11:40)
[2017-08-29] MEDS ORDERED: INSULIN GLARGINE [LANTus] (100 UNITS/ML) SYG SC (20:00)
[2017-08-29] MEDS: INSULIN GLARGINE [LANTus] (100 UNITS/ML) SYG SC (21:28)
[2017-08-29] MEDS: ATORVASTATIN 20 MG TAB PO (21:29)
[2017-08-30] MEDS: ACCU-CHEK XX (02:00)
[2017-08-30] MEDS: PANTOPRAZOLE (EC) 40 MG TAB PO (05:16)
[2017-08-30] MEDS: INSULIN ASPART [NOVOLOG] 3 ML PEN SC ×6 (07:50→17:55)
[2017-08-30] MEDS: SENNA/DOCUSATE NA (8.6MG/50MG) TAB PO (08:44)
[2017-08-30] MEDS: BALSAM PERU/CASTOR OIL 60 GM TUBE TOP (09:00)
[2017-08-30] MEDS: metFORMIN (XR) 500 MG TAB PO ×2 (09:31→17:58)
[2017-08-30] MEDS: ASCORBIC ACID 500 MG TAB PO (09:31)
[2017-08-30] MEDS: LINAGLIPTIN 5 MG TABLET PO (09:31)
[2017-08-30] MEDS: ALLOPURINOL 300 MG TAB PO (09:31)
[2017-08-30] MEDS: FERROUS FUMARATE (SR) TAB PO (09:31)
[2017-08-30] MEDS: EMPAGLIFLOZIN 10 MG TABLET PO (09:31)
[2017-08-30] MEDS: METHIMAZOLE 5 MG TAB PO ×2 (09:31→14:59)
[2017-08-30] MEDS: LACTOBACILLUS RHAMNOSUS CAP PO (09:32)
[2017-08-30] MEDS: FUROSEMIDE 20 MG TAB PO (09:33)
[2017-08-30] MEDS ORDERED: INSULIN GLARGINE [LANTus] (100 UNITS/ML) SYG SC (20:00)
== END 2017-08-30 18:10 | disposition home health service (06) | DRG 871 ==
LOC: TEL 08-16 03:52 → MS1 08-26 00:55 → E/R 16:28 → MS2 18:32
PROC: 0DBE8ZX Excision of Large Intestine, Via Natural or Artificial Opening Endoscopic, Diagnostic (ICD-10-PCS; principal; 2017-08-16 17:30)
DX: A41.9 Sepsis, unspecified organism (principal); I50.33 Acute on chronic diastolic (congestive) heart failure; N39.0 Urinary tract infection, site not specified; K92.1 Melena; K50.10 Crohn's disease of large intestine without complications; B37.49 Other urogenital candidiasis; E87.70 Fluid overload, unspecified; L89.621 Pressure ulcer of left heel, stage 1; L89.321 Pressure ulcer of left buttock, stage 1; E05.00 Thyrotoxicosis with diffuse goiter without thyrotoxic crisis or storm; E11.9 Type 2 diabetes mellitus without complications; Z86.73 Personal history of transient ischemic attack (TIA), and cerebral infarction without residual deficits; I25.2 Old myocardial infarction; I11.0 Hypertensive heart disease with heart failure; E66.9 Obesity, unspecified; Z68.32 Body mass index [BMI] 32.0-32.9, adult; D64.9 Anemia, unspecified
CPT/HCPCS: 36415; 71045; 75635; 80048; 80053; 81001; 82270; 82728; 82787; 82962; 83036; 83540; 83605; 83735; 84100; 84436; 84439; 84443; 84479; 84481; 84484; 85014; 85018; 85025; 85610; 85730; 86038; 86255; 86376; 86706; 86708; 86709; 86803; 86850; 86900; 86901; 87040; 87086; 87340; 88305; 88341; 88342; 93005; 94640; 94664; 96374; 96375; 97110; 97116; 97162; 97530; 99285-25

== ENCOUNTER 2017-12-13 12:01 | Emergency (ER) | payer MEDICARE, OTHER ==
[2017-12-13 13:17] LABS: ADD MAN DIFF? NO
[2017-12-13 13:28] LABS: BASOPHIL # 0.1 10^3/ul (0.0-0.1); BASOPHILS % 0.6 % (0.0-2.0); EOSINOPHILS # 0.1 10^3/ul (0.0-0.5); EOSINOPHILS % 1.2 % (0.0-7.0); HEMATOCRIT 29.3 % (37.0-47.0); HEMOGLOBIN 8.5 g/dl (12.0-16.0); LYMPHOCYTES # 2.4 10^3/ul (0.8-2.9); LYMPHOCYTES % 29.1 % (15.0-51.0); MEAN CORPUSCULAR VOLUME 89.6 fl (82.0-101.0); MEAN PLATELET VOLUME 9.9 fl (7.4-10.4); MONOCYTE # 1.1 10^3/ul (0.3-0.9); MONOCYTES % 13.5 % (0.0-11.0); NEUTROPHIL # 4.5 10^3/ul (1.6-7.5); NEUTROPHILS % 55.1 % (39.0-77.0); PLATELET COUNT 400 10^3/UL (140-415); RED BLOOD COUNT 3.27 10^6/ul (4.20-5.40); RED CELL DISTRIBUTION WIDTH 17.1 % (11.5-14.5)
[2017-12-13 13:28] LABS: WHITE BLOOD COUNT 8.2 10^3/ul (4.8-10.8)
[2017-12-13 13:44] LABS: ANION GAP 4 (5-13); BLOOD UREA NITROGEN 14 mg/dl (7-20); CALCIUM 7.5 mg/dl (8.4-10.2); CARBON DIOXIDE 26 mmol/L (21-31); CHLORIDE 109 mmol/L (97-110); CREATININE 0.52 mg/dl (0.44-1.00); GLUCOSE 200 mg/dl (70-220); POTASSIUM 4.6 mmol/L (3.5-5.1); SODIUM 139 mmol/L (135-144)
[2017-12-13 14:20] LABS: ADD UMIC YES; UR ASCORBIC ACID NEGATIVE (NEGATIVE); UR BACTERIA FEW /HPF (NONE SEEN); UR BILIRUBIN (Dip) NEGATIVE (NEGATIVE); UR BLOOD (Dip) 2+ mg/dL (NEGATIVE); UR BUDDING YEAST FEW /HPF (NONE SEEN); UR CLARITY TURBID (CLEAR); UR COLOR AMBER (YELLOW); UR GLUCOSE (Dip) 1+ mg/dL (NEGATIVE); UR KETONES (Dip) NEGATIVE (NEGATIVE); UR LEUKOCYTE ESTERASE (Dip) 3+ Leu/ul (NEGATIVE); UR MUCUS FEW /HPF (NONE SEEN); UR NITRITE (Dip) POSITIVE (NEGATIVE); UR NONSQUAMOUS EPITHELIAL CELL 3 /HPF (NONE SEEN); UR RBC 10 /HPF (0-5); UR SPECIFIC GRAVITY (Dip) 1.016 (1.003-1.030); UR SQUAMOUS EPITHELIAL CELL MODERATE /HPF (FEW); UR TOTAL PROTEIN (Dip) 1+ mg/dl (NEGATIVE); UR UROBILINOGEN (Dip) NEGATIVE (NEGATIVE); UR WBC > 182 /HPF (0-5)
[2017-12-13] MEDS ORDERED: CEFTRIAXONE 1 GM/50 ML (PMX) 50 ML IVPB (14:30)
[2017-12-13] MEDS: CEFTRIAXONE 1 GM INJ IM (16:59)
== END 2017-12-13 18:36 | disposition home or self-care (01) ==
LOC: E/R 12:01
DX: T83.511A Infection and inflammatory reaction due to indwelling urethral catheter, initial encounter (principal); N36.8 Other specified disorders of urethra; N39.0 Urinary tract infection, site not specified; R40.2122 Coma scale, eyes open, to pain, at arrival to emergency department; R40.2242 Coma scale, best verbal response, confused conversation, at arrival to emergency department; R40.2352 Coma scale, best motor response, localizes pain, at arrival to emergency department; I10 Essential (primary) hypertension; E11.9 Type 2 diabetes mellitus without complications; Y73.2 Prosthetic and other implants, materials and accessory gastroenterology and urology devices associated with adverse incidents; Z79.4 Long term (current) use of insulin; Z79.01 Long term (current) use of anticoagulants
CPT/HCPCS: 51702; 80048; 81001; 85025; 96372; 99284-25